=== PATIENT | male | born 1970 | race Caucasian/White ===

== ENCOUNTER 2016-11-11 11:24 | Emergency (ER) | payer SELFPAY ==
[~2016-11-11] VITALS: Ht 172.7 cm; Wt 60.0 kg
[~2016-11-11 11:24] MED LIST: LISI-590 PO; RANI150 PO
[2016-11-11 11:31] VITALS: BP 145/90; PULSE 88; RESP 12; TEMP 98.4; O2SAT 97
--- NOTE | 2016-11-11 12:37 | PD ---
HPI Chief Complaint: Injury Time Seen by Provider: 12:33 Travel History International Travel<30 days: No Contact w/Intl Traveler<30days: No Traveled to known affect area: No History of Present Illness HPI 46-year-old male presents to the emergency department for evaluation of right ankle injury that occurred after he fell just prior to arrival. Patient states he stepped up the sidewalk and fell. He denies hitting his head or losing consciousness. No neck pain or back pain. No chest pain or abdominal pain. No nausea or vomiting. He denies any hip or pelvic pain. Patient states only injury is right ankle. He reports history of high blood pressure. Patient denies any other complaints at this time. PFSH Past Medical History Arthritis: Yes Blood Disorders: No Anxiety: Yes Depression: Yes Cancer: No Cardiovascular Problems: Yes Diabetes: No Diminished Hearing: No Endocrine: No Gastrointestinal Disorders: Yes GERD: Yes Genitourinary: No Hepatitis: No Hiatal Hernia: No Hypertension: Yes Immune Disorder: No Kidney Stones: Yes Musculoskeletal: No Reproductive: No Respiratory: No Migraines: Yes Pancreatitis: Yes Thyroid Disease: No Tetanus Vaccination: < 5 Years Influenza Vaccination: No PNEUMOCCOCAL Vaccine (Year): 2 Past Surgical History Joint Replacement: Yes (bilateral knee) Oral Surgery: Yes (Jaw) Pacemaker: No Other Surgery: Yes (plastic jaw bone) Social History 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 Afebrile. SKIN: Warm and dry. HEAD: Normocephalic. Atraumatic. EYES: No scleral icterus. No injection or drainage. NECK: Supple, trachea midline. No JVD or lymphadenopathy. CARDIOVASCULAR: Regular rate and rhythm without murmurs, gallops, or rubs. Right pedal pulse 2+/ RESPIRATORY: Breath sounds equal bilaterally. No accessory muscle use. Lung sounds clear to auscultation throughout. GASTROINTESTINAL: Abdomen soft, non-tender, nondistended. MUSCULOSKELETAL: No cyanosis. Mild swelling noted over right lateral ankle with tenderness to palpation. No posterior ankle tenderness. BACK: Nontender without obvious deformity. No CVA tenderness. Data Data Last Documented VS Vital Signs Date Time Temp Pulse Resp B/P Pulse Ox O2 Delivery O2 Flow Rate FiO2 11/11/16 11:31 98.4 88 12 145/90 97 Room Air Orders Ankle, Complete ([id number]) (11/11/16 ) Ketorolac Inj (Toradol Inj) (11/11/16 12:45) Splint Or Brace Apply/Monitor (11/11/16 13:38) Crutches (11/11/16 13:38) MDM Medical Decision Making Medical Screen Exam Complete: Yes Emergency Medical Condition: Yes Medical Record Reviewed: Yes Interpretation(s) x-ray right ankle - CONCLUSION: Distal fibular fracture. Differential Diagnosis ankle fracture versus sprain versus contusion Narrative Course 46-year-old male presents to the emergency department for evaluation of right ankle injury that occurred just prior to arrival. He denies any other injury. X-ray of the right ankle is ordered and pending. Ice pack is applied. Patient is given Toradol 60 mg IM. X-ray of the right ankle shows a distal fibular fracture. Patient was placed in a posterior short leg/sugar tong splint and given crutches. He is instructed to follow-up with orthopedist. He'll be given the name and number for the orthopedist on-call today. Patient will be discharged short-term prescription for Lortab. Patient agrees to this. The patient was discharged in stable condition with instructions, including return instructions and follow up instructions. Diagnosis Primary Impression: Closed right ankle fracture Qualified Code: S82.891A - Closed right ankle fracture, initial encounter Referrals: Ron Campos MD call for appointment Orthopedist call for appointment Patient Instructions: Ankle Fracture (ED), General Instructions Additional Instructions: Wrist splint and use crutches. Elevate. Follow-up with an orthopedist. A mandatory referral was placed. Take Lortab as instructed as needed for pain. Caution this can make you drowsy so do not drive after taking. Return to the emergency department for any acute worsening of symptoms. Med/Other Pt SpecificInfo: Prescription(s) given Scripts Hydrocodone-Acetaminophen (Lortab)5-325 Mg Tab1 Tab PO Q6H PRN (PAIN) #16 TAB Ref 0 Prov:Shantell Sevilla MD 11/11/16 Disposition: 01 DISCHARGE HOME Condition: Stable Angelina Delgado Nov 11, 2016 12:37
[2016-11-11] MEDS ORDERED: KETOROLAC TROMETHAMINE 60 MG/2 ML (IM) VIAL IM ONE (12:45)
--- NOTE | 2016-11-11 13:34 | RADRPT ---
EXAM DATE/TIME: 11/11/2016 12:49 [facility] COMPARISON: No previous studies available for comparison. INDICATIONS : Injured right ankle today when stepping out of truck. Pain is 360 degrees around ankle and is most se mable on the lateral side MEDICAL HISTORY : None. SURGICAL HISTORY : None. ENCOUNTER: Initial ACUITY: 1 day PAIN SCORE: 10/10 LOCATION: Right ankle FINDINGS: There is a fracture of the distal fibula. The tibia and talus are intact. CONCLUSION: Distal fibular fracture. Mason Smith MD FACR on November 11, 2016 at 13:26 Board Certified Radiologist. This report was verified electronically.
[2016-11-11] MEDS ORDERED: HYDR-3533 PO (13:48)
== END 2016-11-11 14:48 | disposition home or self-care (01) ==
LOC: NEPB 11:24
DX: S82.891A Other fracture of right lower leg, initial encounter for closed fracture (principal); I10 Essential (primary) hypertension; F10.10 Alcohol abuse, uncomplicated; W01.0XXA Fall on same level from slipping, tripping and stumbling without subsequent striking against object, initial encounter; Y93.01 Activity, walking, marching and hiking; Y92.480 Sidewalk as the place of occurrence of the external cause; Z72.0 Tobacco use
CPT/HCPCS: 29515; 73610; 96372; 99284; E0113; J1885

== ENCOUNTER 2017-01-08 14:43 | Emergency (ER) | payer SELFPAY ==
[~2017-01-08] VITALS: Ht 172.7 cm; Wt 62.0 kg
[~2017-01-08 14:43] MED LIST changes: +HYDR-3533 PO; -RANI150 PO
[2017-01-08 14:51] VITALS: BP 140/97; PULSE 77; RESP 16; TEMP 98.4; O2SAT 96
[2017-01-08] MEDS ORDERED: LISI10TA3 PO (14:55)
--- NOTE | 2017-01-08 14:59 | PD ---
HPI Chief Complaint: ankle pain Time Seen by Provider: 14:54 Travel History International Travel<30 days: No Contact w/Intl Traveler<30days: No History of Present Illness HPI Patient comes in by EMS after reportedly falling out of his bed and injuring his ankle. Per EMS family heard patient fall out of bed and he was requesting 911 to be called. Patient complaining of right ankle pain and headache. Patient states he broke same ankle approximately 6 weeks ago and was seeing Dr. Campos for this. Patient states he has not had a cast nor any surgery. Patient 's pain is over the lateral aspect of his right ankle without radiation. Per EMS patient was ambulatory at the scene. Patient reports that he hit his head is having pain in his occipital lobe. Per EMS patient had close to a case of empty beer cans in his room. Patient reports that he only drank 8 so far today. PFSH Past Medical History Arthritis: Yes Blood Disorders: No Anxiety: Yes Depression: Yes Cancer: No Cardiovascular Problems: Yes Diabetes: No Diminished Hearing: No Endocrine: No Gastrointestinal Disorders: Yes GERD: Yes Genitourinary: No Hepatitis: No Hiatal Hernia: No Hypertension: Yes Immune Disorder: No Kidney Stones: Yes Musculoskeletal: No Reproductive: No Respiratory: No Migraines: Yes Pancreatitis: Yes Thyroid Disease: No PNEUMOCCOCAL Vaccine (Year): 2 Past Surgical History Joint Replacement: Yes (bilateral knee) Oral Surgery: Yes (Jaw) Pacemaker: No Other Surgery: Yes (plastic jaw bone) Social History Alcohol Use: Yes (daily) Tobacco Use: Yes Substance Use: No Allergies-Medications (Allergen,Severity, Reaction): Coded Allergies: No Known Allergies (Verified , 01/08/17) Reported Meds & Prescriptions Reported Meds & Active Scripts Active Reported Lisinopril 10 Mg Tab 10 Mg PO DAILY Review of Systems ROS Limitations: Intoxication Except as stated in HPI: all other systems reviewed are Neg Physical Exam Exam Limitations: Intoxication Narrative GENERAL: Well-developed, well nourished, in no acute distress, and non-ill appearing. SKIN: Focused skin assessment warm and dry. HEAD: Atraumatic. Normocephalic. EYES: Pupils equal and round. EOMI. No scleral icterus. No injection or drainage. ENT: No nasal bleeding or discharge. Mucous membranes pink and moist. NECK: Trachea midline. Supple. No nuclear rigidity. No tenderness or crepitus over midline of the Cervical Spine. CARDIOVASCULAR: Dorsal pulses 2+, intact, and equal bilaterally. Capillary refill less than 2 seconds. RESPIRATORY: No accessory muscle use. No respiratory distress. MUSCULOSKELETAL: No obvious deformities. No clubbing. No cyanosis. No edema. Full range of motion. Ankle: Neagative anterior draw and Leahy test. Negative Otilia's sign. No laxity noted with passive inversion and eversion of BL ankles. Negative squeeze test. Pulses equal BL distal to injury. Capillary refill less than 2 seconds distal to injury and equal BL. Sensation equal BL 1st web space. FROM of toes distal to injury and equal BL. NV intact distal to injury and equal BL. Dorsal pulses equal BL. Patient reports tenderness to palpation over the lateral aspect of the right ankle. NEUROLOGICAL: Awake and alert. No obvious cranial nerve deficits. Motor grossly within normal limits. Slurred speech. PSYCHIATRIC: Appropriate mood and affect; insight and judgment normal. Data Data Last Documented VS Vital Signs Date Time Temp Pulse Resp B/P Pulse Ox O2 Delivery O2 Flow Rate FiO2 01/08/17 14:51 98.4 77 16 140/[address] Brain W/O Iv Contrast(Rout) (01/08/17 ) Ct Cerv Spine W/O Contrast (01/08/17 ) Ankle, Complete ([id number]) (01/08/17 ) Ice/Cold Pack (01/08/17 14:52) Splint Or Brace Apply/Monitor (01/08/17 16:05) Brace Fracture Walker (01/08/17 ) Ibuprofen (Motrin) (01/08/17 17:15) MDM Medical Decision Making Medical Screen Exam Complete: Yes Emergency Medical Condition: Yes Differential Diagnosis Fracture, sprain, contusion, internal hemorrhage, headache, other Narrative Course The distal extremity appears neurovascularly intact, without evidence of neurovascular injury nor compartment syndrome. Tendon exam also was intact. The effected limb was splinted. The patient was discharged with fracture and splint care instructions and given warnings for vascular compromise. The patient is to follow up with Orthopedics. The patient agrees with plan. Patient was seen and examined. Patient will be monitored in the emergency department until clinically sober and able to ambulate on their own or until a sober responsible adult comes to pick them up. RN is aware of this. 1656 patient's mother is here to take patient home. Patient in no obvious distress upon re-evaluation. All pertinent Radiology result(s) discussed with patient. I discussed patient with Dr. Sevilla prior to discharge, who is in agreement with plan of care and disposition. Any questions /concerns in reference to patient diagnosis/condition discussed and clarified prior to patient's discharge. Reinforced sheer importance of close follow up with patient's primary physician or primary care clinic and/or orthopedics. Instructed patient to return to ED immediately, if symptoms return/worsen. Pt showed understanding of above instructions. Further instructions and recommendations were detailed in discharge paperwork. Pt ambulated without difficulty out of ED at discharge with cam boot. Diagnosis Primary Impression: Closed right ankle fracture Qualified Code: S82.891G - Closed right ankle fracture, with delayed healing, subsequent encounter Additional Impression: Head injury, closed Qualified Code: S09.90XA - Head injury, closed, initial encounter Patient Instructions: Ankle Fracture (DC), General Instructions, Head Injury ( ED), Splint Care (ED) Additional Instructions: Follow-up with your primary care physician and orthopedic this week. Apply ice affected area 20 minutes per hour as needed for pain. Use [id number] Tylenol and/or ibuprofen as needed for pain. Follow instructions on the packaging. Return to the emergency department if symptoms get worse. Disposition: 01 DISCHARGE HOME Condition: Stable Carlos Alvarez Jan 08, 2017 14:59
--- NOTE | 2017-01-08 15:21 | RADRPT ---
EXAM DATE/TIME: 01/08/2017 15:02 [facility] COMPARISON: ANKLE RIGHT COMPLETE ([id number]), November 11, 2016, 12:49. INDICATIONS : Possible reinjury of his right ankle. MEDICAL HISTORY : right ankle fracture 2-2016 SURGICAL HISTORY : None. ENCOUNTER: Initial ACUITY: 1 day PAIN SCORE: 9/10 LOCATION: Right ankle FINDINGS: There is a fracture lucency seen through the distal fibula with some bridging callus formation noted, increased from previous study. There is mildly increased lucency at the fracture site suggesting kieran e bone resorption. The ankle mortise is approximated. CONCLUSION: Distal fibular fracture with some callus formation seen slight increased resorption at the fracture s ite as above. Surendra Muniz MD on January 08, 2017 at 15:19 Board Certified Radiologist. This report was verified electronically.
--- NOTE | 2017-01-08 16:03 | RADRPT ---
EXAM DATE/TIME: 01/08/2017 15:22 [facility] COMPARISON: CT BRAIN W/O CONTRAST, August 04, 2011, 12:39. INDICATIONS : Headache RADIATION DOSE: 47.21 CTDIvol (mGy) MEDICAL HISTORY : Congestive hearrt failure. Hypertension. Pancreatitis SURGICAL HISTORY : Plastic jaw bone ENCOUNTER: Initial ACUITY: 1 day PAIN SCALE: 8/10 LOCATION: Bilateral cranial TECHNIQUE: Multiple contiguous axial images were obtained of the head. Using automated exposure control and adj ustment of the mA and/or kV according to patient size, radiation dose was kept as low as reasonably a chievable to obtain optimal diagnostic quality images. FINDINGS: CEREBRUM: The ventricles are normal for age. No evidence of midline shift, mass lesion, hemorrhage or acute in farction. No extra-axial fluid collections are seen. POSTERIOR FOSSA: The cerebellum and brainstem are intact. The 4th ventricle is midline. The cerebellopontine angle i s unremarkable. EXTRACRANIAL: The visualized portion of the orbits is intact. SKULL: The calvaria is intact. No evidence of skull fracture. CONCLUSION: No acute disease. No significant change has occurred. Emre Hercules MD on January 08, 2017 at 16:00 Board Certified Radiologist. This report was verified electronically.
--- NOTE | 2017-01-08 16:10 | RADRPT ---
EXAM DATE/TIME: 01/08/2017 15:22 [facility] COMPARISON: No previous studies available for comparison. INDICATIONS : Neck pain from fall. RADIATION DOSE: 40.21 CTDIvol (mGy) MEDICAL HISTORY : Cardiovascular disease. Hypertension. Pancreatitis. SURGICAL HISTORY : Plastic jaw bone surgery. ENCOUNTER: Initial ACUITY: 1 day PAIN SCALE: 3/10 LOCATION: Bilateral neck pain. TECHNIQUE: Volumetric scanning of the cervical spine was performed. Multiplanar reconstructions in the sagittal, coronal and oblique axial planes were performed. Using automated exposure control and adjustment o f the mA and/or kV according to patient size, radiation dose was kept as low as reasonably achievable to obtain optimal diagnostic quality images. FINDINGS: Cervical spine alignment is satisfactory. There is no evidence of cervical spine fracture. No bony ca nal or foraminal stenosis is identified. There is moderate degenerative disc disease at the C4-5, C5- 6 and C6-7 levels with significant disc space narrowing and mild endplate and uncovertebral osteophyt ic spurring at each of these levels. There is no evidence of paraspinal mass or hematoma. CONCLUSION: No acute bony injury in the cervical spine Nicolas Monk MD on January 08, 2017 at 16:04 Board Certified Radiologist. This report was verified electronically.
[2017-01-08] MEDS ORDERED: IBUPROFEN 800 MG TAB PO ONE (17:15)
== END 2017-01-08 16:59 | disposition home or self-care (01) ==
LOC: NEPC 14:43
DX: S82.891A Other fracture of right lower leg, initial encounter for closed fracture (principal); S09.90XA Unspecified injury of head, initial encounter; W06.XXXA Fall from bed, initial encounter
CPT/HCPCS: 70450; 72125; 73610; 99284; L2114

== ENCOUNTER 2017-08-03 01:16 | Emergency (ER) | payer SELFPAY ==
[~2017-08-03] VITALS: Ht 175.3 cm; Wt 60.0 kg
[~2017-08-03 01:16] MED LIST changes: -HYDR-3533 PO; -LISI-590 PO; +LISI10TA3 PO
[2017-08-03 01:21] VITALS: RESP 16
[2017-08-03 01:26] VITALS: BP 154/101; PULSE 84; RESP 16; TEMP 98.5; O2SAT 95
--- NOTE | 2017-08-03 02:04 | PD ---
HPI Chief Complaint: Bleeding Time Seen by Provider: 01:49 Travel History International Travel<30 days: No Contact w/Intl Traveler<30days: No Traveled to known affect area: No History of Present Illness HPI 47yo M with chronic alcohol abuse and hemorrhoids here with c/o bleeding from his rectum since yesterday. Said he went to the bathroom and had bright red blood. Denies any fever, chest pain, sob, n/v, hematemesis, focal weakness. Pt has some lower abdominal pain as well. Drinks daily, drank today. Denies any falls. PFSH Past Medical History Arthritis: Yes Blood Disorders: No Anxiety: Yes Depression: Yes Cancer: No Cardiovascular Problems: Yes Diabetes: No Diminished Hearing: No Endocrine: No Gastrointestinal Disorders: Yes GERD: Yes Genitourinary: No Hepatitis: No Hiatal Hernia: No Hypertension: Yes Immune Disorder: No Kidney Stones: Yes Medical other: Yes (NEUROPATHY) Musculoskeletal: No Reproductive: No Respiratory: No Migraines: Yes Pancreatitis: Yes Thyroid Disease: No PNEUMOCCOCAL Vaccine (Year): 2 Past Surgical History Joint Replacement: Yes (bilateral knee) Oral Surgery: Yes (Jaw) Pacemaker: No Other Surgery: Yes (plastic jaw bone) Social History Alcohol Use: Yes (daily) Tobacco Use: No Substance Use: No Allergies-Medications (Allergen,Severity, Reaction): Coded Allergies: No Known Allergies (Verified Adverse Reaction, Unknown, 08/03/17) Reported Meds & Prescriptions Reported Meds & Active Scripts Active Reported Lisinopril 10 Mg Tab 10 Mg PO DAILY Review of Systems Except as stated in HPI: all other systems reviewed are Neg Physical Exam Narrative GENERAL: 47yo M in mild distress. SKIN: Focused skin assessment warm/dry. HEAD: Atraumatic. Normocephalic. EYES: Pupils equal and round. No scleral icterus. No injection or drainage. ENT: No nasal bleeding or discharge. Mucous membranes pink and moist. NECK: Trachea midline. No JVD. CARDIOVASCULAR: Regular rate and rhythm. No murmur appreciated. RESPIRATORY: No accessory muscle use. Clear to auscultation. Breath sounds equal bilaterally. GASTROINTESTINAL: Abdomen soft, +TTP lower abdomen. No rebound tenderness or guarding. MUSCULOSKELETAL: No obvious deformities. No clubbing. No cyanosis. No edema. NEUROLOGICAL: Awake and alert. No obvious cranial nerve deficits. Motor grossly within normal limits. Normal speech. PSYCHIATRIC: Appropriate mood and affect; insight and judgment normal. Data Data Last Documented VS Vital Signs Date Time Temp Pulse Resp B/P (MAP) Pulse Ox O2 Delivery O2 Flow Rate FiO2 08/03/17 05:01 08/03/17 04:56 78 16 96 Room Air 08/03/17 01:26 98.5 Orders Orders Complete Blood Count With Diff (08/03/17 01:49) Comprehensive Metabolic Panel (08/03/17 01:49) Lipase (08/03/17 01:49) Ct Abd/Pel W Iv Contrast(Rout) (08/03/17 ) Iohexol 350 Inj (Omnipaque 350 Inj) (08/03/17 02:42) Labs Laboratory Tests Test 08/03/17 02:14 White Blood Count 4.1 TH/MM3 Red Blood Count 3.92 MIL/MM3 Hemoglobin 14.0 GM/DL Hematocrit 39.2 % Mean Corpuscular Volume 100.0 FL Mean Corpuscular Hemoglobin 35.8 PG Mean Corpuscular Hemoglobin Concent 35.8 % Red Cell Distribution Width 14.5 % Platelet Count 171 TH/MM3 Mean Platelet Volume 6.9 FL Neutrophils (%) (Auto) 38.7 % Lymphocytes (%) (Auto) 39.7 % Monocytes (%) (Auto) 15.3 % Eosinophils (%) (Auto) 4.4 % Basophils (%) (Auto) 1.9 % Neutrophils # (Auto) 1.6 TH/MM3 Lymphocytes # (Auto) 1.6 TH/MM3 Monocytes # (Auto) 0.6 TH/MM3 Eosinophils # (Auto) 0.2 TH/MM3 Basophils # (Auto) 0.1 TH/MM3 CBC Comment DIFF FINAL Differential Comment Blood Urea Nitrogen 1 MG/DL Creatinine 0.69 MG/DL Random Glucose 100 MG/DL Total Protein 7.8 GM/DL Albumin 4.0 GM/DL Calcium Level 8.5 MG/DL Alkaline Phosphatase 51 U/L Aspartate Amino Transf (AST/SGOT) 152 U/L Alanine Aminotransferase (ALT/SGPT) 62 U/L Total Bilirubin 1.3 MG/DL Sodium Level 129 MEQ/L Potassium Level 3.6 MEQ/L Chloride Level 91 MEQ/L Carbon Dioxide Level 26.7 MEQ/L Anion Gap 11 MEQ/L Estimat Glomerular Filtration Rate 122 ML/MIN Lipase 581 U/L MDM Medical Decision Making Medical Screen Exam Complete: Yes Emergency Medical Condition: Yes Differential Diagnosis Diverticulitis vs. hemorrhoid bleed vs. inflammatory bowel disease vs. AV malformation Narrative Course 47yo M with chronic alcohol abuse here with abdominal pain and rectal bleeding. Hemaprompt is negative. Labs reviewed, no leukocytosis. H/H normal at 14/ 39.2. Lipase elevated at 581. Mild hyponatremia at 129 which is his baseline. Total bilirubin and AST elevated but this is his baseline as well. No RUQ pain. CT a/p showed no acute findings. Abdominal pain resolved. Pt is well appearing and can follow up as outpatient. [facility] Point of Care Internal Pos. & Neg. Controls: Passed Fecal Specimen Occult Blood: Negative Diagnosis Primary Impression: Rectal bleeding Patient Instructions: General Instructions Departure Forms: Tests/Procedures Additional Instructions: Please follow up with your primary care physician in 2-3 days. Return to the ED if symptoms worsen. Med/Other Pt SpecificInfo: No Change to Meds Disposition: 01 DISCHARGE HOME Condition: Stable Concetta Anthony DO Aug 03, 2017 02:04
[2017-08-03 02:26] LABS: AUTOMATED NEUTROPHIL # 1.6 TH/MM3 (1.8-7.7); BASOPHIL # 0.1 TH/MM3 (0-0.2); BASOPHIL % 1.9 % (0.0-2.0); EOSINOPHIL # 0.2 TH/MM3 (0-0.4); EOSINOPHIL % 4.4 % (0.0-4.0); HEMATOCRIT 39.2 % (39.0-51.0); HEMO FLAGS DIFF FINAL; LYMPH % 39.7 % (9.0-44.0); LYMPHOCYTE # 1.6 TH/MM3 (1.0-4.8); MEAN CORPUSCULAR HEMOGLOBIN 35.8 PG (27.0-34.0); MEAN CORPUSCULAR HGB CONC 35.8 % (32.0-36.0); MONO % 15.3 % (0.0-8.0); NEUT % 38.7 % (16.0-70.0); PLATELET COUNT 171 TH/MM3 (150-450); RED BLOOD COUNT 3.92 MIL/MM3 (4.50-5.90); RED CELL DISTRIBUTION WIDTH 14.5 % (11.6-17.2); WHITE BLOOD COUNT 4.1 TH/MM3 (4.0-11.0)
[2017-08-03] MEDS ORDERED: IOHEXOL 350 MG/ML 10 ML VIAL (for RAD DIAG) IVCONTRAST ONE (02:42)
[2017-08-03 02:44] LABS: ALT (GPT) 62 U/L (12-78); ANION GAP 11 MEQ/L (5-15); AST (GOT) 152 U/L (15-37); BICARBONATE 26.7 MEQ/L (21.0-32.0); BLOOD UREA NITROGEN 1 MG/DL (7-18); CHLORIDE 91 MEQ/L (98-107); GLOMERULAR FILTRATION RATE 122 ML/MIN (>89); POTASSIUM 3.6 MEQ/L (3.5-5.1); SODIUM (NA) 129 MEQ/L (136-145)
[2017-08-03 02:47] LABS: ALKALINE PHOSPHATASE 51 U/L (45-117); TOTAL BILIRUBIN ADULT 1.3 MG/DL (0.2-1.0)
--- NOTE | 2017-08-03 02:57 | RADRPT ---
EXAM DATE/TIME: 08/03/2017 02:35 [facility] COMPARISON: CT ABDOMEN & PELVIS W CONTRAST, September 03, 2015, 19:39. INDICATIONS : Medial lower abdominal pain with rectal bleeding. IV CONTRAST: 97 cc Omnipaque 350 (iohexol) IV ORAL CONTRAST: No oral contrast ingested. RADIATION DOSE: 4.49 CTDIvol (mGy) MEDICAL HISTORY : Gastroesophageal reflux disease. Pancreatitis. Cardiovascular diseaseHypertension. Renal calculi. SURGICAL HISTORY : None. ENCOUNTER: Initial ACUITY: 1 day PAIN SCALE: 4/10 LOCATION: medial lower abdomen TECHNIQUE: Volumetric scanning of the abdomen and pelvis was performed. Using automated exposure control and ad justment of the mA and/or kV according to patient size, radiation dose was kept as low as reasonably achievable to obtain optimal diagnostic quality images. DICOM format image data is available electro nically for review and comparison. FINDINGS: LOWER LUNGS: The visualized lower lungs are clear. LIVER: Mild diffuse hepatic steatosis. Area of focal fat again seen in the anterior left lobe not significan tly changed. Gallbladder within normal limits. SPLEEN: Normal size without lesion. PANCREAS: Within normal limits. KIDNEYS: Normal in size and shape. There is no mass, stone or hydronephrosis. ADRENAL GLANDS: Within normal limits. VASCULAR: There is no aortic aneurysm. BOWEL/MESENTERY: Scattered colonic diverticula. No evidence of acute diverticulitis. No evidence of bowel dilatation. No free air or free fluid. Appendix not identified. ABDOMINAL WALL: Within normal limits. RETROPERITONEUM: There is no lymphadenopathy. BLADDER: No wall thickening or mass. REPRODUCTIVE: Within normal limits. INGUINAL: There is no lymphadenopathy or hernia. MUSCULOSKELETAL: Within normal limits for patient age. CONCLUSION: 1. Mild hepatic steatosis. 2. No acute findings in the abdomen and pelvis. Melquiades Shaffer MD on August 03, 2017 at 2:51 Board Certified Radiologist. This report was verified electronically.
[2017-08-03 04:56] VITALS: BP 134/80; PULSE 78; RESP 16; O2SAT 96
== END 2017-08-03 05:07 | disposition home or self-care (01) ==
LOC: NEPE 01:16
DX: K62.5 Hemorrhage of anus and rectum (principal); K76.0 Fatty (change of) liver, not elsewhere classified; M19.90 Unspecified osteoarthritis, unspecified site; F41.9 Anxiety disorder, unspecified; F32.9 Major depressive disorder, single episode, unspecified; K21.9 Gastro-esophageal reflux disease without esophagitis; I10 Essential (primary) hypertension; G62.9 Polyneuropathy, unspecified; Z87.19 Personal history of other diseases of the digestive system
CPT/HCPCS: 74177; 80053; 83690; 85025; 99285; Q9967

== ENCOUNTER 2017-10-17 02:03 | Emergency (ER) | payer SELFPAY ==
[~2017-10-17] VITALS: Ht 172.7 cm; Wt 57.0 kg
[2017-10-17 02:06] VITALS: BP 156/102; PULSE 79; RESP 20; TEMP 98.6; O2SAT 100
[2017-10-17] MEDS ORDERED: PROP10TA6 PO (02:16)
[2017-10-17] MEDS ORDERED: FAMO20TA2 PO (02:16)
--- NOTE | 2017-10-17 04:04 | PD ---
HPI Chief Complaint: General Weakness Time Seen by Provider: 02:13 Travel History International Travel<30 days: No Contact w/Intl Traveler<30days: No Traveled to known affect area: No History of Present Illness HPI pt is apparently intoxicated , he called the paramedics himself to be brought to the ER for leg weakness. Progressively he says his legs been getting weaker over the last few weeks he is obviously slurring and obviously intoxicated. On initial eval he is in no apparent distress vitals within normal limits , AOX3 but slurring PFSH Past Medical History Arthritis: Yes Blood Disorders: No Anxiety: Yes Depression: Yes Cancer: No Cardiovascular Problems: Yes Diabetes: No Diminished Hearing: No Endocrine: No Gastrointestinal Disorders: Yes GERD: Yes Genitourinary: No Hepatitis: No Hiatal Hernia: No Hypertension: Yes Immune Disorder: No Kidney Stones: Yes Musculoskeletal: No Reproductive: No Respiratory: No Migraines: Yes Pancreatitis: Yes Thyroid Disease: No Influenza Vaccination: No PNEUMOCCOCAL Vaccine (Year): 2 Past Surgical History Joint Replacement: Yes (bilateral knee) Oral Surgery: Yes (Jaw) Pacemaker: No Other Surgery: Yes (plastic jaw bone) Social History Alcohol Use: Yes (daily) Tobacco Use: Yes (DIPS) Substance Use: No Allergies-Medications (Allergen,Severity, Reaction): Coded Allergies: No Known Allergies (Verified Adverse Reaction, Unknown, 10/17/17) Reported Meds & Prescriptions Reported Meds & Active Scripts Active Reported Famotidine 20 Mg Tab 20 Mg PO DAILY Propranolol (Propranolol HCl) 10 Mg Tab 10 Mg PO Q12HR Lisinopril 10 Mg Tab 10 Mg PO DAILY Review of Systems Except as stated in HPI: all other systems reviewed are Neg Physical Exam Narrative GENERAL: awake alert slurring reports legs hurt and are weak , very thin man SKIN: Warm and dry. HEAD: Atraumatic. Normocephalic. EYES: Pupils equal and round. No scleral icterus. No injection or drainage. ENT: No nasal bleeding or discharge. Mucous membranes pink and moist. NECK: Trachea midline. No JVD. CARDIOVASCULAR: Regular rate and rhythm. RESPIRATORY: No accessory muscle use. Clear to auscultation. Breath sounds equal bilaterally. GASTROINTESTINAL: Abdomen soft, non-tender, nondistended. Hepatic and splenic margins not palpable. MUSCULOSKELETAL: Extremities legs appear normal equal symmetric without clubbing, cyanosis, or edema. No obvious deformities. NEUROLOGICAL: Awake and alert. No obvious cranial nerve deficits. Motor grossly within normal limits. Five out of 5 muscle strength in the arms and legs. Normal speech. PSYCHIATRIC: Appropriate mood and affect; insight and judgment normal. Data Data Last Documented VS Vital Signs Date Time Temp Pulse Resp B/P (MAP) Pulse Ox O2 Delivery O2 Flow Rate FiO2 10/17/17 11:47 10/17/17 10:05 65 16 99 Room Air 10/17/17 02:06 98.6 Orders Orders Alcohol (Ethanol) (10/17/17 04:04) Comprehensive Metabolic Panel (10/17/17 04:04) Complete Blood Count With Diff (10/17/17 04:04) Lipase (10/17/17 04:04) Sodium Chlor 0.9% 1000 Ml Inj (Ns 1000 M (10/17/17 04:45) Ed Discharge Order (10/17/17 11:18) Labs Laboratory Tests Test 10/17/17 03:50 White Blood Count 3.4 TH/MM3 Red Blood Count 3.57 MIL/MM3 Hemoglobin 12.7 GM/DL Hematocrit 36.0 % Mean Corpuscular Volume 100.8 FL Mean Corpuscular Hemoglobin 35.4 PG Mean Corpuscular Hemoglobin Concent 35.1 % Red Cell Distribution Width 13.1 % Platelet Count 125 TH/MM3 Mean Platelet Volume 7.4 FL Neutrophils (%) (Auto) 45.5 % Lymphocytes (%) (Auto) 38.6 % Monocytes (%) (Auto) 11.9 % Eosinophils (%) (Auto) 3.0 % Basophils (%) (Auto) 1.0 % Neutrophils # (Auto) 1.6 TH/MM3 Lymphocytes # (Auto) 1.3 TH/MM3 Monocytes # (Auto) 0.4 TH/MM3 Eosinophils # (Auto) 0.1 TH/MM3 Basophils # (Auto) 0.0 TH/MM3 CBC Comment DIFF FINAL Differential Comment Blood Urea Nitrogen 2 MG/DL Creatinine 0.63 MG/DL Random Glucose 83 MG/DL Total Protein 7.0 GM/DL Albumin 4.0 GM/DL Calcium Level 8.2 MG/DL Alkaline Phosphatase 51 U/L Aspartate Amino Transf (AST/SGOT) 257 U/L Alanine Aminotransferase (ALT/SGPT) 121 U/L Total Bilirubin 0.9 MG/DL Sodium Level 130 MEQ/L Potassium Level 3.6 MEQ/L Chloride Level 92 MEQ/L Carbon Dioxide Level 25.5 MEQ/L Anion Gap 13 MEQ/L Estimat Glomerular Filtration Rate 135 ML/MIN Lipase 511 U/L Ethyl Alcohol Level 315 MG/DL MDM Medical Decision Making Medical Screen Exam Complete: Yes Emergency Medical Condition: Yes Medical Record Reviewed: Yes Differential Diagnosis hypokalemia or electrolyte imbalnce vs anemia or malnutrition due to etoh , or acute intoxication , vs cerebellar dysfunction for chronic etoh abuse Narrative Course labs reveal acute intox etoh 315 will re-eval when sober signed out to next MD Diagnosis Primary Impression: Alcohol abuse Saeed Suresh MD Oct 17, 2017 04:04
[2017-10-17 04:20] LABS: AUTOMATED NEUTROPHIL # 1.6 TH/MM3 (1.8-7.7); EOSINOPHIL # 0.1 TH/MM3 (0-0.4); HEMOGLOBIN 12.7 GM/DL (13.0-17.0); LYMPH % 38.6 % (9.0-44.0); LYMPHOCYTE # 1.3 TH/MM3 (1.0-4.8); MEAN CELL VOLUME 100.8 FL (80.0-100.0); MEAN CORPUSCULAR HEMOGLOBIN 35.4 PG (27.0-34.0); MEAN CORPUSCULAR HGB CONC 35.1 % (32.0-36.0); MEAN PLATELET VOLUME 7.4 FL (7.0-11.0); MONO % 11.9 % (0.0-8.0); MONOCYTE # 0.4 TH/MM3 (0-0.9); NEUT % 45.5 % (16.0-70.0); PLATELET COUNT 125 TH/MM3 (150-450); RED BLOOD COUNT 3.57 MIL/MM3 (4.50-5.90); RED CELL DISTRIBUTION WIDTH 13.1 % (11.6-17.2); WHITE BLOOD COUNT 3.4 TH/MM3 (4.0-11.0)
[2017-10-17 04:36] LABS: ALT (GPT) 121 U/L (12-78); AST (GOT) 257 U/L (15-37); BICARBONATE 25.5 MEQ/L (21.0-32.0); BLOOD UREA NITROGEN 2 MG/DL (7-18); CALCIUM 8.2 MG/DL (8.5-10.1); CHLORIDE 92 MEQ/L (98-107); CREATININE 0.63 MG/DL (0.60-1.30); GLOMERULAR FILTRATION RATE 135 ML/MIN (>89); GLUCOSE,RANDOM 83 MG/DL (74-106); LIPASE 511 U/L (73-393); SODIUM (NA) 130 MEQ/L (136-145)
[2017-10-17 04:38] LABS: ALKALINE PHOSPHATASE 51 U/L (45-117); TOTAL BILIRUBIN ADULT 0.9 MG/DL (0.2-1.0)
[2017-10-17] MEDS ORDERED: SODIUM CHLOR 0.9% 1000 ML INJ 1,000 ML IV ONE (04:45)
[2017-10-17 06:51] VITALS: BP 109/71; PULSE 63; RESP 15; O2SAT 98
[2017-10-17 10:05] VITALS: BP 121/71; PULSE 65; RESP 16; O2SAT 99
--- NOTE | 2017-10-17 11:18 | PD ---
Data Data Last Documented VS Vital Signs Date Time Temp Pulse Resp B/P (MAP) Pulse Ox O2 Delivery O2 Flow Rate FiO2 10/17/17 11:47 10/17/17 10:05 65 16 99 Room Air 10/17/17 02:06 98.6 Orders Orders Alcohol (Ethanol) (10/17/17 04:04) Comprehensive Metabolic Panel (10/17/17 04:04) Complete Blood Count With Diff (10/17/17 04:04) Lipase (10/17/17 04:04) Sodium Chlor 0.9% 1000 Ml Inj (Ns 1000 M (10/17/17 04:45) Ed Discharge Order (10/17/17 11:18) Labs Laboratory Tests Test 10/17/17 03:50 White Blood Count 3.4 TH/MM3 Red Blood Count 3.57 MIL/MM3 Hemoglobin 12.7 GM/DL Hematocrit 36.0 % Mean Corpuscular Volume 100.8 FL Mean Corpuscular Hemoglobin 35.4 PG Mean Corpuscular Hemoglobin Concent 35.1 % Red Cell Distribution Width 13.1 % Platelet Count 125 TH/MM3 Mean Platelet Volume 7.4 FL Neutrophils (%) (Auto) 45.5 % Lymphocytes (%) (Auto) 38.6 % Monocytes (%) (Auto) 11.9 % Eosinophils (%) (Auto) 3.0 % Basophils (%) (Auto) 1.0 % Neutrophils # (Auto) 1.6 TH/MM3 Lymphocytes # (Auto) 1.3 TH/MM3 Monocytes # (Auto) 0.4 TH/MM3 Eosinophils # (Auto) 0.1 TH/MM3 Basophils # (Auto) 0.0 TH/MM3 CBC Comment DIFF FINAL Differential Comment Blood Urea Nitrogen 2 MG/DL Creatinine 0.63 MG/DL Random Glucose 83 MG/DL Total Protein 7.0 GM/DL Albumin 4.0 GM/DL Calcium Level 8.2 MG/DL Alkaline Phosphatase 51 U/L Aspartate Amino Transf (AST/SGOT) 257 U/L Alanine Aminotransferase (ALT/SGPT) 121 U/L Total Bilirubin 0.9 MG/DL Sodium Level 130 MEQ/L Potassium Level 3.6 MEQ/L Chloride Level 92 MEQ/L Carbon Dioxide Level 25.5 MEQ/L Anion Gap 13 MEQ/L Estimat Glomerular Filtration Rate 135 ML/MIN Lipase 511 U/L Ethyl Alcohol Level 315 MG/DL [facility] Supervised Visit with [facility]UE: No Narrative Course Patient care assumed from Dr. Suresh at 0700, 47-year-old male presents to emergency Department with lower extremity weakness and tremor, found to be significantly intoxicated on arrival. He is been allowed several hours to sober up in the emergency department and at 11 AM he is clinically sober understands that he had too much to drink last night, still complains of bilateral lower extremities weakness and shaking which she states been going on for several months. He hasn't related to the bathroom several times, there is no indication further workup in the emergency department, discussed [facility] for further workup. He is stable for discharge Diagnosis Primary Impression: Alcohol abuse Additional Impression: Lower extremity weakness Referrals: [facility] Pt SpecificInfo: Prescription(s) given Disposition: 01 DISCHARGE HOME Condition: Stable Madan Vargas MD Oct 17, 2017 11:18
== END 2017-10-17 11:48 | disposition home or self-care (01) ==
LOC: NEPE 02:03
DX: F10.10 Alcohol abuse, uncomplicated (principal); R53.1 Weakness; K21.9 Gastro-esophageal reflux disease without esophagitis; I10 Essential (primary) hypertension; K85.90 Acute pancreatitis without necrosis or infection, unspecified; Z72.0 Tobacco use
CPT/HCPCS: 80053; 80307; 83690; 85025; 96360; 96361; 99284; J7030